=== PATIENT | male | born 1950 | race Caucasian/White ===

== ENCOUNTER → 2024-01-25 07:27 | Outpatient (REF) | payer MEDICARE, OTHER, SELFPAY | LOC: DHVS 07:27 | PROVIDERS: ATTENDING PHYSICIAN Surgery Vascular Surgery; FAMILY PHYSICIAN Family Medicine; REFERRING PHYSICIAN Internal Medicine Cardiovascular Disease | DX: I73.9 Peripheral vascular disease, unspecified (principal); I71.40 Abdominal aortic aneurysm, without rupture, unspecified | CPT/HCPCS: 93922; 93925; 93978 ==

== ENCOUNTER → 2025-02-04 07:20 | Outpatient (REF) | payer MEDICARE, OTHER, SELFPAY | LOC: RAD 07:20 | PROVIDERS: ATTENDING PHYSICIAN Surgery Vascular Surgery; FAMILY PHYSICIAN Family Medicine | DX: I73.9 Peripheral vascular disease, unspecified (principal) | CPT/HCPCS: 93922; 93925 ==